=== PATIENT | female | born 1995 | race Two or more races ===

== ENCOUNTER 2018-10-21 07:25 | Inpatient (IN) | payer SELFPAY ==
[~2018-10-21] VITALS: Ht 162.6 cm; Wt 63.5 kg
[2018-10-21] MEDS ORDERED: PREN-96 PO (08:03)
[2018-10-21] MEDS ORDERED: LACT. RINGERS/OXYTOCIN 20UNITS 1,000 ML IV SCH (08:50)
[2018-10-21] MEDS ORDERED: DERMOPLAST 60ML BOTTLE TOP PRN (09:00)
[2018-10-21] MEDS ORDERED: PHISODERM TOP SOLN 240ML BTL TOP PRN (09:00)
[2018-10-21] MEDS ORDERED: LIDOCAINE 2%HCL (LOCAL ANESTH.) INJ 20ML MDV ID PRN (09:00)
[2018-10-21] MEDS ORDERED: NALBUPHINE HCL 10 MG/1ml INJECTION IV PRN (09:00)
[2018-10-21] MEDS ORDERED: WITCH HAZEL-GLYCERIN PAD TOP PRN (09:00)
[2018-10-21] MEDS: LACTATED RINGER'S 1,000 ML IV SCH ×2 (09:45→17:30)
[2018-10-21 09:50] LABS: Basophils # (auto) 0 uL; Basophils % (auto) 0.2 % (0.0-2.0); Eosinophils # (auto) 0.1 uL; Eosinophils % (auto) 0.7 % (0.0-7.0); Hematocrit 39.4 % (36.0-46.0); Hemoglobin 13.4 g/dL (12.2-16.2); Lymphocytes # (auto) 1.9 uL; Lymphocytes % (auto) 16.3 % (10.0-50.0); Mean Corpuscular Hgb Conc. 34.1 g/dL (32.0-36.0); Mean Corpuscular Volume 90.9 fL (80.0-100.0); Monocytes # (auto) 0.6 uL; Monocytes % (auto) 4.9 % (0.0-12.0); Neutrophils # (auto) 9.3 uL; Neutrophils % (auto) 77.9 % (37.0-80.0); Platelet Count (auto) 273 10^3/uL (140-450); Red Blood Cells 4.33 10^6/uL (4.0-5.20); Red Cell Distribution Width 13.8 % (11.8-14.3)
[2018-10-21 10:07] LABS: INR 0.87 (0.9-1.15); Partial Thromboplastin Time 26.1 sec (23.78-33.04); Prothrombin Time 9.4 sec (9.27-12.13)
[2018-10-21 10:09] LABS: Potassium 3.8 mmol/L (3.5-5.1)
[2018-10-21 10:12] LABS: Albumin 2.7 g/dL (3.4-5.0); Calcium 8.7 mg/dL (8.5-10.1)
[2018-10-21 10:17] LABS: Alcohol, Urine < 3.0 mg/dL (0-5); Amphetamine Screen, Urine NEGATIVE (NEGATIVE); BUN/Creatinine Ratio 18.9; Barbiturate Scree,Urine NEGATIVE (NEGATIVE); Benzodiazephine Screen, Urine NEGATIVE (NEGATIVE); Bilirubin, Total 0.3 mg/dL (0.2-1.0); Cannabinoid Screen, Urine NEGATIVE (NEGATIVE); Cocaine Screen, Urine NEGATIVE (NEGATIVE); Opiate Scree,Urine NEGATIVE (NEGATIVE); Phencyclidine Screen, Urine NEGATIVE (NEGATIVE); Total Protein 7.2 g/dL (6.4-8.2)
[2018-10-21 11:01] LABS: Urine Bacteria NONE SEEN /hpf (None Seen); Urine Blood 2+ /uL (Negative); Urine Specific Gravity 1.009 (1.001-1.035); Urine WBC 4 /hpf (0 - 5)
[2018-10-21] MEDS ORDERED: LIDOCAINE HCL 2 %PF INJ 10ML AMP IJ ONE (12:45)
[2018-10-21] MEDS ORDERED: ePHEDrine SULFATE 50 MG/ML AMP IV ONE (12:45)
[2018-10-21] MEDS ORDERED: NALOXONE HCL 0.4 MG/ML VIAL IV ONE (12:45)
[2018-10-21] MEDS ORDERED: fentaNYL CITRATE 100 MCG/2 ML VL IV ONE (12:45)
[2018-10-21] MEDS ORDERED: LIDOCAINE W/ EPINEPHRINE 1 % INJ 30ML ONE (12:51)
[2018-10-21] MEDS: fentaNYL W ROPIVACAINE 150 ML EPI SCH (13:30)
[2018-10-22] MEDS: LACTATED RINGER'S 1,000 ML IV SCH (00:50)
[2018-10-22] MEDS ORDERED: LACT. RINGERS/OXYTOCIN 20UNITS 500 ML IV ONE (04:26)
[2018-10-22] MEDS ORDERED: ACETAMINOPHEN 325 MG TAB PO PRN (04:30)
[2018-10-22] MEDS ORDERED: LACT. RINGERS/OXYTOCIN 20UNITS 1,000 ML IV SCH (05:26)
[2018-10-22] MEDS: fentaNYL W ROPIVACAINE 150 ML EPI SCH ×2 (05:28→05:29)
--- NOTE | 2018-10-22 05:45 | NUR ---
Assisted pt out of bed after dangling at bedside for 10 minutes. Pt denied dizziness. Pt sat on toilet approx 10 minutes with water running in sink to promote urine flow. Perineum swollen. Pt stated she was unable to void. Pt then, complained of dizziness, this RN put on urgent call light. Pt fainted. 3 RN's showed up and provided amonia inhalent waved under patients nose and pt came to. With assist pt returned to fresh linen bed. Fundal massage provided. Fundus deep and deviated to the right. Massage provided and no clots expelled. Ice/tucks/spray provided to perineum.
[2018-10-22] MEDS ORDERED: AMMONIA 0.33 ML INHALANT IN ONE (06:18)
[2018-10-22 07:30] VITALS: BP 106/70
[2018-10-22] MEDS: DOCUSATE SOD 100 MG CAP PO SCH ×2 (10:03→22:00)
[2018-10-22] MEDS: IBUPROFEN 600 MG TAB PO PRN ×2 (10:03→13:07)
[2018-10-22 11:00] VITALS: BP 112/59
[2018-10-22 16:16] VITALS: BP 117/65
[2018-10-22 19:04] VITALS: BP 133/63
[2018-10-22 23:30] VITALS: BP 122/55
[2018-10-23 03:30] VITALS: BP 112/62
[2018-10-23 05:10] LABS: RPR Non Reactive (Non Reactive)
[2018-10-23 07:10] VITALS: BP 114/63
[2018-10-23] MEDS ORDERED: TETANUS-DIPTH-ACEL PERTUSSIS 0.5ML SYRG IM ONE (07:45)
--- NOTE | 2018-10-23 09:00 | NUR ---
Discharge: Discharge instructions given as ordered. Pt encouraged to follow up with [facility] as instructed. All questions and concerns addressed. Patient verbalized understanding. Medication reconciliation completed and copy given to patient. All required/requested vaccines given and copies of vaccinations given to patient. Patient encouraged to prepare to depart unit.
--- NOTE | 2018-10-23 09:40 | NUR ---
Discharge: Patient taken to vehicle via wheelchair with all personal belongings, accompanied by staff and family member. No distress noted at time of departure, no adverse changes in status since initial assessment.
== END 2018-10-23 09:40 | disposition home or self-care (01) | DRG 807 ==
LOC: LDRP 07:25 → OBSVTOIN 07:25 → LDRP 08:20
PROVIDERS: ADMIT Specialist; ATTEND Specialist
PROC: 10E0XZZ Delivery of Products of Conception, External Approach (ICD-10-PCS; principal; 2018-10-22)
PROC: 0KQM0ZZ Repair Perineum Muscle, Open Approach (ICD-10-PCS; 2018-10-22)
PROC: 3E0R3BZ Introduction of Anesthetic Agent into Spinal Canal, Percutaneous Approach (ICD-10-PCS; 2018-10-22)
PROC: 00HU33Z Insertion of Infusion Device into Spinal Canal, Percutaneous Approach (ICD-10-PCS; 2018-10-22)
DX: O42.92 Full-term premature rupture of membranes, unspecified as to length of time between rupture and onset of labor (principal); Z37.0 Single live birth; O76 Abnormality in fetal heart rate and rhythm complicating labor and delivery; O69.81X0 Labor and delivery complicated by cord around neck, without compression, not applicable or unspecified; Z3A.39 39 weeks gestation of pregnancy; F53.0 Postpartum depression; O70.1 Second degree perineal laceration during delivery
CPT/HCPCS: 36415; 51702; 59025; 59409; 62282; 80053; 80307; 81001; 81002; 85025; 85610; 85730; 86592; 86850; 86870; 86900; 86901; 90715; 94760; 96361; 96365; 96366; 96372; A6257; G0378; J2590; J3010